=== PATIENT | male | born 1960 | race Two or more races ===

== ENCOUNTER 2020-11-03 10:36 | Day surgery (SDC) | payer OTHER | END 2020-11-03 19:05 | disposition home or self-care (01) | LOC: CIR.AMB 10:36 | PROVIDERS: ATTEND Orthopaedic Surgery Hand Surgery | DX: S46.212A Strain of muscle, fascia and tendon of other parts of biceps, left arm, initial encounter (principal); Z20.822 Contact with and (suspected) exposure to COVID-19 ==